=== PATIENT | female | born 1940 | race Caucasian/White ===

== ENCOUNTER → 2018-04-16 14:19 | Outpatient (CLI) | payer MEDICARE, BC | END | disposition home or self-care (01) | LOC: D.CT 14:19 | DX: S09.90XA Unspecified injury of head, initial encounter (principal); X58.XXXA Exposure to other specified factors, initial encounter ==

== ENCOUNTER → 2019-03-22 12:25 | Outpatient (CLI) | payer MEDICARE, BC | END | disposition home or self-care (01) | LOC: D.CT 12:25 | PROVIDERS: ATTEND Family Medicine | DX: R51 Headache (principal); W19.XXXA Unspecified fall, initial encounter ==

== ENCOUNTER → 2019-09-07 15:53 | Outpatient (CLI) | payer MEDICARE, BC | END | disposition home or self-care (01) | LOC: D.RAD 15:53 | PROVIDERS: ATTEND Family Medicine | DX: J40 Bronchitis, not specified as acute or chronic (principal) ==